=== PATIENT | female | born 1980 | race Caucasian/White ===

== ENCOUNTER 2018-10-16 17:45 | Emergency (ER) | payer OTHER ==
[~2018-10-16] VITALS: Ht 167.6 cm; Wt 81.2 kg
[~2018-10-16 17:45] MED LIST: ALBUTEROL INHAL17 GM IH; CIPROFLOXACIN500 M1 PO; DOXYCYCLINE 10100 MG PO; IBUPROFEN 600600 M1 PO; NOHOMEMEDICATIONS; NORCO 5-325 TA1 EACH PO; PREDNISONE50 MG PO; ZOFRAN4 MG PO
[2018-10-16 21:02] VITALS: BP 141/76
== END 2018-10-16 21:05 | disposition home or self-care (01) ==
LOC: ER 17:45
DX: S01.01XA Laceration without foreign body of scalp, initial encounter (principal); S61.203A Unspecified open wound of left middle finger without damage to nail, initial encounter; F17.210 Nicotine dependence, cigarettes, uncomplicated; J45.909 Unspecified asthma, uncomplicated; Z87.442 Personal history of urinary calculi; Y04.0XXA Assault by unarmed brawl or fight, initial encounter; Y92.89 Other specified places as the place of occurrence of the external cause; Y93.89 Activity, other specified; Y99.8 Other external cause status